=== PATIENT | male | born 1970 | race Hispanic/Latino ===

== ENCOUNTER 2021-12-02 15:22 | Emergency (ER) | payer SELFPAY ==
--- NOTE | 2021-12-02 17:00 | RAD REPORT ---
EXAM DESCRIPTION: RAD - Femur Right - 12/02/2021 4:24 pm CLINICAL HISTORY: PAIN COMPARISON: No comparisons FINDINGS: No acute fracture or dislocation seen.
--- NOTE | 2021-12-02 17:01 | RAD REPORT ---
EXAM DESCRIPTION: RAD - Tib Fib Right - 12/02/2021 4:24 pm CLINICAL HISTORY: PAIN COMPARISON: No comparisons FINDINGS: No fracture or dislocation is seen.
[2021-12-02 18:08] LABS: Absolute Lymphocytes (CBC) 2.1 K/uL (0.7-4.9); Hematocrit 43.3 % (39.6-49.0); Lymphocytes % 19.8 % (15.3-44.8); RBC Red Blood Cell Count 5.21 M/uL (4.33-5.43)
--- NOTE | 2021-12-02 18:08 | RAD REPORT ---
EXAM DESCRIPTION: RAD - Foot Right 3 View - 12/02/2021 6:00 pm CLINICAL HISTORY: PAIN COMPARISON: No comparisons FINDINGS: No acute fracture or dislocation evident.
[2021-12-02 18:25] LABS: Potassium 3.9 mmol/L (3.5-5.1)
[2021-12-02] MEDS ORDERED: ONDANSETRON 4 MG/2 ML VIAL ONE (19:10)
[2021-12-02] MEDS ORDERED: MORPHINE 4 MG/ML SYR ONE (19:10)
[2021-12-02] MEDS ORDERED: NA CHLORIDE 0.9% 1,000 ML ONE (19:11)
--- NOTE | 2021-12-02 19:26 | RAD REPORT ---
EXAM DESCRIPTION: CT - Head C Spine Cap Jerry Calixto - 12/02/2021 7:04 pm CLINICAL HISTORY: Trauma, head and neck injury. Chest, abdomen and pelvis pain. PAIN COMPARISON: No comparisons TECHNIQUE: CT head without contrast. CT cervical spine without contrast with coronal and sagittal reformatted images. CT chest, abdomen and pelvis with IV contrast (approximately 100 mL nonionic IV contrast) with bueon l and sagittal reformatted images of the spine. All CT scans are performed using dose optimization technique as appropriate and may include automated exposure control or mA/KV adjustment according to patient size. FINDINGS: CT HEAD WITHOUT CONTRAST: No intracranial hemorrhage, hydrocephalus or extra-axial fluid collection. No areas of brain edema o r midline shift. The paranasal sinuses and mastoids are clear. The calvarium is intact. Slight deformity of the nasal bones seen. CT CERVICAL SPINE WITHOUT CONTRAST: No fracture or subluxation. Spondylosis is noted greatest at C6-7. The prevertebral soft tissues are normal in thickness. CT CHEST, ABDOMEN, PELVIS WITH CONTRAST: The lungs are clear.No pneumothorax or pericardial/pleural fluid. No evidence of intra-abdominal visceral injury, free fluid or free air. 7 mm stone is present inferio r calyx right kidney. No concerning pelvic findings. IMPRESSION: There is mild nasal bone irregularity, which could be a fracture. Recommend correlation clinical point tenderness. Elsewhere no acute trauma related abnormality is seen.
[2021-12-02] MEDS ORDERED: INSULIN -REGULAR HUMAN 50 UNIT/0.5 ML ML ONE (19:36)
--- NOTE | 2021-12-02 20:23 | EDPHYS ---
Physician Documentation [facility] Name: Justin Luis Jr Age: 51 yrs Sex: Male : 1970 Arrival Date: 12/02/2021 Time: 15:24 Bed 11 Private MD: ED Physician Leo Coffey HPI: 12/02 16:40 This 51 yrs old Male presents to ER via Wheelchair with complaints of Leg pm1 Pain, Fall Injury - from roof. 16:40 Trauma demographics: Location of Injury: The injury occurred at home, Date: December 022021. Mechanism of injury: Fall: the patient fell from a roof approximately approximately 10 feet, and struck a grass-covered surface. Associated injuries: The patient sustained right leg, right low back. Onset: The symptoms/episode began/occurred this morning. The patient has not experienced similar symptoms in the past. The patient has not recently seen a physician. Patient was removing his Henrietta lights with flip flops, tripped on his slippers, felt that he was falling so he jumped off the roof and landed on the right side of his body. Denies headache, head injury, neck pain, LOC. No chest pain or shortness of breath. Patient reports right lower back pain and right leg pain. 16:40 Patient was able to walk after falling but started to experience pain after he rested pm1 for awhile. Historical: - Allergies: 15:45 Naproxen; iw - PMHx: 15:45 prostate cancer; Diabetes mellitus; Hypertensive disorder; iw - PSHx: 15:45 None; iw - Immunization history:: Client reports having NOT received the Covid vaccine. - Social history:: Smoking status: Patient reports the use of cigarette tobacco products, smokes one-half pack cigarettes per day. ROS: 16:40 Constitutional: Negative for fever, chills, and weight loss, Cardiovascular: Negative pm1 for chest pain, palpitations, and edema, Respiratory: Negative for shortness of breath, cough, wheezing, and pleuritic chest pain, Abdomen/GI: Negative for abdominal pain, nausea, vomiting, diarrhea, and constipation. 16:40 Skin: Negative for injury, rash, and discoloration, Neuro: Negative for headache, weakness, numbness, tingling, and seizure. 16:40 Back: Positive for of the right low back. 16:40 MS/extremity: Positive for pain, of the right leg, Negative for decreased range of motion, deformity. 16:40 All other systems are negative. Exam: 16:40 Constitutional: This is a well developed, well nourished patient who is awake, alert, pm1 and in no acute distress. Head/Face: Normocephalic, atraumatic. 16:40 Skin: Warm, dry with normal turgor. Normal color with no rashes, no lesions, and no evidence of cellulitis. 16:40 Neck: Exam negative for acute changes, External neck: is normal, C-spine: appears grossly normal, no vertebral tenderness, no crepitus, ROM/movement: is normal, is supple, without pain, no range of motions limitations. 16:40 Chest/axilla: Exam negative for acute changes, Inspection: normal, Palpation: is normal, no crepitus, no tenderness. 16:40 Cardiovascular: Exam negative for acute changes, Rate: normal, Rhythm: regular, Pulses: no pulse deficits are appreciated, Heart sounds: normal. 16:40 Respiratory: Exam negative for acute changes, respiratory distress, shortness of breath, Breath sounds: are clear throughout. 16:40 Abdomen/GI: Inspection: abdomen appears normal, Palpation: abdomen is soft and non-tender, in all quadrants. 16:40 Back: normal spinal alignment noted, vertebral tenderness, is not appreciated, muscle spasm, is appreciated in the right low back. 16:40 Musculoskeletal/extremity: Extremities: grossly normal except: noted in the right leg: tenderness along entire right leg. No decreased range of motion, swelling, or deformity present, ROM: no acute changes, intact in all extremities, Circulation is intact in all extremities. the right foot Sensation intact. 16:40 Neuro: Exam negative for acute changes, Orientation: is normal, Mentation: is normal, Motor: is normal, moves all fours. Vital Signs: 15:44 BP 150 / 76; Pulse 92; Resp 20; Temp 98.3; Pulse Ox 100% ; Weight 77.11 kg; Height 5 iw ft. 9 in. (175.26 cm); Pain 10/10; 19:26 BP 145 / 80; Pulse 18; Resp 18; Pulse Ox 86% ; al4 19:30 BP 142 / 74; Pulse 84; Resp 18; Pulse Ox 100% ; al4 15:44 Body Mass Index 25.10 (77.11 kg, 175.26 cm) iw MDM: 16:53 Patient medically screened. pm1 19:11 Data reviewed: vital signs. Data interpreted: Pulse oximetry: on room air is 100 %. pm1 Interpretation: normal. 20:20 Counseling: I had a detailed discussion with the patient and/or guardian regarding: the pm1 historical points, exam findings, and any diagnostic results supporting the discharge/admit diagnosis, lab results, radiology results, the need for outpatient follow up, to return to the emergency department if symptoms worsen or persist or if there are any questions or concerns that arise at home. 20:24 ED course: PMPAware reviewed. pm1 12/02 16:40 Order name: Basic Metabolic Panel pm1 12/02 16:40 Order name: CBC with Diff; Complete Time: 19:03 pm1 12/02 16:40 Order name: Type And Screen pm1 12/02 16:40 Order name: Basic Metabolic Panel; Complete Time: 18:39 EDMS 12/02 19:52 Order name: Glucose, Ancillary Testing; Complete Time: 20:08 EDMS 12/02 20:10 Order name: Glucose, Ancillary Testing; Complete Time: 20:15 EDMS 12/02 15:47 Order name: Femur Right XRAY; Complete Time: 17:26 iw 12/02 15:47 Order name: Tib Fib Right XRAY; Complete Time: 17:26 iw 12/02 16:39 Order name: Foot Right 3 View XRAY; Complete Time: 18:13 pm1 12/02 16:40 Order name: CT Traumagram (Head C Spine CAP W Con); Complete Time: 19:28 pm1 12/02 16:40 Order name: Labs collected and sent; Complete Time: 19:46 pm1 Administered Medications: 19:30 Drug: Zofran (Ondansetron) 4 mg Route: IVP; Site: right antecubital; al4 20:00 Follow up: Response: No adverse reaction al4 19:42 Drug: Insulin Regular Human 10 units {Co-Signature: jl7 (Raquel Carr RN).} Route: IVP; al4 Site: right antecubital; 20:10 Follow up: Response: No adverse reaction al4 19:44 Drug: NS 0.9% 1000 ml Route: IV; Rate: 1000 ml; Site: right antecubital; al4 20:30 Follow up: IV Status: Completed infusion al4 19:46 Drug: morphine 4 mg Route: IVP; Site: right antecubital; al4 20:10 Follow up: Response: No adverse reaction; RASS: Alert and Calm (0) al4 Disposition: 12/03 08:48 Co-signature as Attending Physician, Leo Coffey MD I agree with the assessment and lakia plan of care. Disposition Summary: 12/02/21 20:22 Discharge Ordered Location: Home pm1 Problem: new pm1 Symptoms: have improved pm1 Condition: Stable pm1 Diagnosis - Hyperglycemia, unspecified pm1 - Fall from, out of or through roof, initial encounter pm1 - Contusion of right lower leg pm1 - Muscle spasm of back pm1 Followup: pm1 - With: Emergency Department - When: As needed - Reason: Worsening of condition Followup: pm1 - With: Private Physician - When: 2 - 3 days - Reason: Recheck today's complaints, Continuance of care, Re-evaluation by your physician Discharge Instructions: - Discharge Summary Sheet pm1 - Contusion pm1 - Hyperglycemia pm1 - Muscle Cramps and Spasms pm1 - Blood Glucose Monitoring, Adult pm1 Forms: - Medication Reconciliation Form pm1 - Thank You Letter pm1 - Antibiotic Education pm1 - Prescription Opioid Use pm1 Prescriptions: - Tylenol-Codeine #3 300 mg-30 mg Oral - take 2 tablet by ORAL route every 6 hours As needed; 20 tablet; Refills: 0, pm1 Product Selection Permitted Signatures: Dispatcher [employer] Leo Teague MD MD cha Williams, Irene, RN RN Gurpreet Butler, DIRECTOR OF EVENT MARKETING DIRECTOR OF EVENT MARKETING pm1 Prosper Albert al4 Raquel Carr RN [email or web address] Corrections: (The following items were deleted from the chart) 12/02 15:46 15:45 Allergies: No Known Allergies; [facility] 17:01 15:48 Pelvis Wo Cont+CT.RAD.BRZ ordered. EDUT EDMS
--- NOTE | 2021-12-02 20:23 | ER ---
Nurse's Notes [facility] Name: Justin Luis Jr Age: 51 yrs Sex: Male : 1970 Arrival Date: 12/02/2021 Time: 15:24 Bed 11 Private MD: Diagnosis: Hyperglycemia, unspecified;Fall from, out of or through roof, initial encounter;Contusion of right lower leg;Muscle spasm of back Presentation: 12/02 15:43 Chief complaint: Patient states: I fell off the roof this morning and landed on my iw right side. Pain from waist to foot. Care prior to arrival: None. Mechanism of Injury: Fall from . Trauma event details: Injury occurred in the [facility], Injury occurred: December 02, 2021. 15:43 Acuity: BRANDIE 3 iw 15:43 Method Of Arrival: Wheelchair iw 15:44 Coronavirus screen: Vaccine status: Patient reports being unvaccinated. Ebola Screen: iw Patient negative for fever greater than or equal to 101.5 degrees Fahrenheit, and additional compatible Ebola Virus Disease symptoms Patient denies exposure to infectious person. Patient denies travel to an Ebola-affected area in the 21 days before illness onset. No symptoms or risks identified at this time. Initial Sepsis Screen: Does the patient meet any 2 criteria? No. Patient's initial sepsis screen is negative. Does the patient have a suspected source of infection? No. Patient's initial sepsis screen is negative. Risk Assessment: Do you want to hurt yourself or someone else? Patient reports no desire to harm self or others. Onset of symptoms was December 02, 2021. Triage Assessment: 15:46 General: Appears in no apparent distress. comfortable, Behavior is calm, cooperative. iw Pain: Complains of pain in right leg Pain currently is 10 out of 10 on a pain scale. Historical: - Allergies: 15:45 Naproxen; iw - PMHx: 15:45 prostate cancer; Diabetes mellitus; Hypertensive disorder; iw - PSHx: 15:45 None; iw - Immunization history:: Client reports having NOT received the Covid vaccine. - Social history:: Smoking status: Patient reports the use of cigarette tobacco products, smokes one-half pack cigarettes per day. Screenin:44 Abuse screen: Denies threats or abuse. Nutritional screening: No deficits noted. al4 Tuberculosis screening: No symptoms or risk factors identified. Fall Risk Fall in past 12 months (25 points). IV access (20 points). Ambulatory Aid- None/Bed Rest/Nurse Assist (0 pts). Gait- Normal/Bed Rest/Wheelchair (0 pts) Mental Status- Oriented to own ability (0 pts). Total Romero Fall Scale indicates High Risk Score (45 or more points). Fall prevention measures have been instituted. Side Rails Up X 2 Placed Close to Nursing Station Frequent Obs/Assessments Occuring Family Present and informed to notify staff if the need to leave the bedside As available patient and family educated on Fall Prevention Program and Strategies. Assessment: 19:30 General: Appears in no apparent distress. comfortable, Behavior is calm, cooperative, al4 appropriate for age. Pain: Complains of pain in generalized Pain currently is 8 out of 10 on a pain scale. Neuro: Level of Consciousness is awake, alert, obeys commands, Oriented to person, place, time, situation. Cardiovascular: Heart tones present Capillary refill < 3 seconds Patient's skin is warm and dry. Respiratory: Airway is patent Respiratory effort is even, unlabored, Respiratory pattern is regular, symmetrical. GI: No signs and/or symptoms were reported involving the gastrointestinal system. : No signs and/or symptoms were reported regarding the genitourinary system. EENT: No signs and/or symptoms were reported regarding the EENT system. Derm: No signs and/or symptoms reported regarding the dermatologic system. Musculoskeletal: Reports pain on left side of body. patient is able to ambulate and move extremities well. 20:21 Reassessment: patient ambulated to restroom . al4 20:45 Reassessment: patient educated on insulin administration. patient and verbalized al4 that patient will recheck blood sugar when home and eat food. . Vital Signs: 15:44 BP 150 / 76; Pulse 92; Resp 20; Temp 98.3; Pulse Ox 100% ; Weight 77.11 kg; Height 5 iw ft. 9 in. (175.26 cm); Pain 10/10; 19:26 BP 145 / 80; Pulse 18; Resp 18; Pulse Ox 86% ; al4 19:30 BP 142 / 74; Pulse 84; Resp 18; Pulse Ox 100% ; al4 15:44 Body Mass Index 25.10 (77.11 kg, 175.26 cm) iw ED Course: 15:24 Patient arrived in ED. am2 15:44 Triage completed. iw 15:47 Arm band placed on left wrist. iw 16:24 Femur Right XRAY In Process Unspecified. EDMS 16:24 Tib Fib Right XRAY In Process Unspecified. EDMS 16:38 Gurpreet Butler NP is PHCP. pm1 16:38 Leo Coffey MD is Attending Physician. pm1 18:00 Initial lab(s) drawn, by me, sent to lab. Inserted saline lock: 20 gauge in right kj1 antecubital area, using aseptic technique. Blood collected. 18:01 Foot Right 3 View XRAY In Process Unspecified. EDMS 19:00 Meredith Pino RN is Primary Nurse. iw 19:04 CT Traumagram (Head C Spine CAP W Con) In Process Unspecified. EDMS 19:15 Primary Nurse role handed off by Meredith Pino, RN mw2 20:38 Prosper Albert is Primary Nurse. al4 20:44 Patient has correct armband on for positive identification. al4 20:44 No provider procedures requiring assistance completed. IV discontinued, intact, al4 bleeding controlled, No redness/swelling at site. Pressure dressing applied. Administered Medications: 19:30 Drug: Zofran (Ondansetron) 4 mg Route: IVP; Site: right antecubital; al4 20:00 Follow up: Response: No adverse reaction al4 19:42 Drug: Insulin Regular Human 10 units {Co-Signature: jl7 (Raquel Carr RN).} Route: IVP; al4 Site: right antecubital; 20:10 Follow up: Response: No adverse reaction al4 19:44 Drug: NS 0.9% 1000 ml Route: IV; Rate: 1000 ml; Site: right antecubital; al4 20:30 Follow up: IV Status: Completed infusion al4 19:46 Drug: morphine 4 mg Route: IVP; Site: right antecubital; al4 20:10 Follow up: Response: No adverse reaction; RASS: Alert and Calm (0) al4 Outcome: 20:22 Discharge ordered by . pm1 20:44 Discharged to home ambulatory, with family. al4 20:44 Condition: stable 20:44 Discharge instructions given to patient, family, Instructed on discharge instructions, follow up and referral plans. no drinking with medication, medication usage, Demonstrated understanding of instructions, follow-up care, medications. 20:45 Patient left the ED. al4 Signatures: Dispatcher [employer] Meredith Garcia, RN RN Gurpreet Dillon, DESIGN AND SALES CONSULTANT DESIGN AND SALES CONSULTANT pm1 Pam Santana am2 Kolby Garrett mw2 Marleni Mehta kj1 Prosper Albert al4 Raquel Carr RN jl7 Corrections: (The following items were deleted from the chart) 15:46 15:45 Allergies: No Known Allergies; patrick
[2021-12-02 21:03] VITALS: TEMP 98.3
[2021-12-02 21:05] VITALS: BP 142/74; O2SAT 100
== END 2021-12-02 20:45 | disposition home or self-care (01) ==
LOC: ER 15:22
DX: S80.11XA Contusion of right lower leg, initial encounter (principal); M62.830 Muscle spasm of back; E11.65 Type 2 diabetes mellitus with hyperglycemia; W13.2XXA Fall from, out of or through roof, initial encounter; Y92.008 Other place in unspecified non-institutional (private) residence as the place of occurrence of the external cause; F17.210 Nicotine dependence, cigarettes, uncomplicated; Z88.6 Allergy status to analgesic agent
CPT/HCPCS: 36415; 70450; 71260; 72125; 74177; 80048; 82947; 85025; 86850; 86900; 86901; 96361; 96374; 96375; 99284; J2405; J7030; Q9967